=== PATIENT | male | born 1950 | race Caucasian/White ===

== ENCOUNTER 2021-09-25 09:22 | Emergency (ER) | payer MEDICARE, OTHER ==
[2021-09-25] MEDS ORDERED: methylPREDNISolone Sod Succ/PF 125 MG/2 ML VIAL ONE (09:50)
[2021-09-25] MEDS ORDERED: Magnesium 2 GM/50 ML BAG (IN WATER) ONE (09:50)
[2021-09-25 09:57] LABS: #Eosinphils 0.2 10x3/uL (0.0-0.5); #Monocytes 0.7 10x3/uL (0.0-1.1); #Neutrophils 8.5 10x3/uL (1.5-8.4); %Basophils 0.2 % (0.0-2.0); %Eosinophils 1.9 % (0.0-6.0); %Lymphocytes 10.9 % (18.0-47.0); %Monocytes 6.2 % (0.0-10.0); %Neutrophils 80.4 % (40.0-75.0); Hemoglobin 15.6 g/dL (13.5-17.5); Mean Corpuscular Hemoglobin 31.1 pg (27.0-33.0); Mean Corpuscular Volume 94.4 fl (81.2-95.1); Mean Platelet Volume 9.8 fl (7.4-10.4); Platelet Count 162 10x3/uL (150-450); RBC Distribution Width 12.8 % (11.5-14.5); Red Blood Cell (RBC) Count 5.01 10x6/uL (4.32-5.72); White Blood Cell (WBC) Count 10.5 10x3/uL (3.5-10.5)
[2021-09-25 10:34] LABS: ALT (SGPT) 23 U/L (8-55); AST (SGOT) 23 U/L (5-34); Albumin 4.3 g/dL (3.4-4.8); Alkaline Phosphatase 51 U/L (40-110); Anion Gap 15 mmol/L (10-20); BUN (Urea Nitrogen) 20 mg/dL (8.4-25.7); Bilirubin, Total 1.1 mg/dL (0.2-1.2); Calc. Creatinine Clearance 0 mL/min (70-130); Calcium 9.7 mg/dL (7.8-10.44); Carbon Dioxide 30 mmol/L (23-31); Chloride 99 mmol/L (98-107); Globulin 3.2 g/dL (2.4-3.5); Glucose 123 mg/dL (80-115); Potassium 4.5 mmol/L (3.5-5.1); Protein, Total 7.5 g/dL (5.8-8.1); Sodium 139 mmol/L (136-145)
[2021-09-25] MEDS ORDERED: Albuterol Sulfate 2.5 mg/3 ml Neb ONE (10:46)
== END 2021-09-25 12:53 | disposition home or self-care (01) ==
LOC: CSHERS 09:22
DX: J45.901 Unspecified asthma with (acute) exacerbation (principal); I10 Essential (primary) hypertension
CPT/HCPCS: 71045; 80053; 84484; 85025; 93005; 94640; 96374; 96375; J2930; J3475; J7611; J7620

== ENCOUNTER 2023-07-20 12:54 | Emergency (ER) | payer MEDICARE, OTHER ==
[2023-07-20] MEDS ORDERED: Lidocaine 1% w/Epinephrine 1:200K 30 ML VIAL ONE (17:52)
[2023-07-20] MEDS ORDERED: Boostrix 0.5 ML (Tdap) VIAL (>/=7 yrs of age) ONE (19:25)
== END 2023-07-20 19:23 | disposition home or self-care (01) ==
LOC: CSHERS 12:54
DX: L02.413 Cutaneous abscess of right upper limb (principal); I10 Essential (primary) hypertension
CPT/HCPCS: 10060; 87070; 87205; 90471; 90715

== ENCOUNTER 2023-07-23 11:11 | Emergency (ER) | payer MEDICARE, OTHER | END 2023-07-23 13:35 | disposition home or self-care (01) | LOC: CSHERS 11:11 | DX: Z48.00 Encounter for change or removal of nonsurgical wound dressing (principal) | CPT/HCPCS: 99282 ==